=== PATIENT | female | born 1930 | race African-American/Black ===

== ENCOUNTER 2016-10-31 14:28 | Emergency (ER) | payer MEDICAID, MEDICARE ==
[~2016-10-31] VITALS: Ht 165.1 cm; Wt 79.4 kg
[2016-10-31 14:46] VITALS: BP 146/90
== END 2016-10-31 16:46 | disposition home or self-care (01) ==
LOC: ER 14:34
DX: R51 Headache (principal); M54.2 Cervicalgia; I10 Essential (primary) hypertension; E78.5 Hyperlipidemia, unspecified
CPT/HCPCS: 70450

== ENCOUNTER 2017-06-05 16:33 | Emergency (ER) | payer MEDICARE, OTHER ==
[~2017-06-05] VITALS: Ht 165.1 cm; Wt 81.6 kg
[2017-06-05] MEDS ORDERED: ACETAMINOPHEN 325 MG TAB PO ONE ×2 (16:44→17:00)
[2017-06-05 17:07] VITALS: BP 158/75
[2017-06-05] MEDS ORDERED: HYDROcodone-ACET 5/325MG TAB PO ONE (17:45)
== END 2017-06-05 18:02 | disposition home or self-care (01) ==
LOC: ER 16:33
DX: M23.92 Unspecified internal derangement of left knee (principal); I10 Essential (primary) hypertension; E78.5 Hyperlipidemia, unspecified
CPT/HCPCS: 73562

== ENCOUNTER 2019-03-23 18:01 | Emergency (ER) | payer MEDICARE, OTHER ==
[~2019-03-23] VITALS: Ht 165.1 cm; Wt 81.6 kg
[2019-03-23 18:37] LABS: Basophils # (auto) 0 uL; Basophils % (auto) 0.6 % (0.0-2.0); Eosinophils # (auto) 0.2 uL; Hematocrit 38.4 % (36.0-46.0); Hemoglobin 12.7 g/dL (12.2-16.2); Lymphocytes # (auto) 2.6 uL; Lymphocytes % (auto) 42.4 % (10.0-50.0); Mean Corpuscular Hgb Conc. 33.1 g/dL (32.0-36.0); Mean Corpuscular Volume 87.5 fL (80.0-100.0); Monocytes # (auto) 0.6 uL; Monocytes % (auto) 9.6 % (0.0-12.0); Neutrophils # (auto) 2.8 uL; Neutrophils % (auto) 44.4 % (37.0-80.0); Nucleated Red Blood Cells % 0.1 %; Platelet Count (auto) 244 10^3/uL (140-450); Red Blood Cells 4.39 10^6/uL (4.0-5.20); Red Cell Distribution Width 14.2 % (11.8-14.3); White Blood Cell 6.2 10^3/uL (4.4-10.8)
[2019-03-23 18:53] LABS: Alanine Aminotransferase 16 U/L (13-56); Albumin 3.7 g/dL (3.4-5.0); Anion Gap 6 (5-15); Aspartate Aminotransferase 17 U/L (15-37); BUN/Creatinine Ratio 11.8; Blood Urea Nitrogen 14 mg/dL (7-18); Calcium 9.6 mg/dL (8.5-10.1); Carbon Dioxide 27 mmol/L (21-32); Chloride 110 mmol/L (98-107); GFR African American 55 mL/min; GFR Non-African American 46 mL/min; Glucose 88 mg/dL (74-106); Sodium 143 mmol/L (136-145)
[2019-03-23 18:58] LABS: Alkaline Phosphatase 68 U/L (45-117); Bilirubin, Total 0.7 mg/dL (0.2-1.0); Total Protein 8.1 g/dL (6.4-8.2)
[2019-03-24 02:07] LABS: INR 1.07 (0.9-1.15); Partial Thromboplastin Time 30.5 sec (23.64-32.05)
[2019-03-24 04:53] LABS: Urine Bacteria NONE SEEN /hpf (None Seen); Urine Blood Negative /uL (Negative); Urine Specific Gravity 1.012 (1.001-1.035); Urine WBC 1 /hpf (0 - 5)
[2019-03-24 05:00] VITALS: BP 148/82
== END 2019-03-24 05:24 | disposition home or self-care (01) ==
LOC: ER 18:01
DX: R07.89 Other chest pain (principal); E78.5 Hyperlipidemia, unspecified; I10 Essential (primary) hypertension
CPT/HCPCS: 36415; 71045; 80053; 81001; 83880; 84484; 85025; 85379; 85610; 85730; 93005